=== PATIENT | female | born 1940 | race Caucasian/White ===

== ENCOUNTER 2017-03-11 09:45 | Inpatient (IN) | payer MEDICARE, BC ==
[2017-03-11] MEDS ORDERED: Sodium Chloride 0.9% 1,000 ML IV ONE (09:52)
--- NOTE | 2017-03-11 09:58 | EDM.PDOC ---
ED HISTORY OF PRESENT ILLNESS - General Stated Complaint: FROM CLINIC, AFIB Time Seen by Provider: 03/11/17 09:50 Source of Information: Reports: Patient, Provider History Limitations: Reports: No limitations - History of Present Illness INITIAL COMMENTS - FREE TEXT/NARRATIVE: This 76 yo female patient was sent to the ED from [facility] due to chest tightness and new onset of A fib with RVR. The patient reports she has been experiencing increased shortness of breath for the past 2-3 days along with some chest tightness. The clinic assessed the patient and noted a heart rate of 140 and the EKG demonstrates new onset Atrial Fibrillation with rapid ventricular response. The patient has a past history of osteoporosis and is currently on Calcium and Vitamin D. Symptom Onset Date: 03/07/17 Timing/Duration: Reports: Constant Severity: moderate Location, General: Reports: chest Quality: Reports: Dull (tightness) Improves with: Reports: Rest Worsens with: Reports: Movement Associated Symptoms (General): Reports: chest pain (tightness), shortness of breath - Related Data Allergies/ADRs: Allergies Allergy/AdvReac Type Severity Reaction Status Date / Time Penicillins Allergy Hives Verified 03/11/17 09:53 Home Meds: Home Meds Calcium Carbonate/Vitamin D3 [Caltrate 600 + D Soft Chew Tab] 1 each PO DAILY [History] Multivitamin [Multivitamins] 1 each PO DAILY 03/11/17 [History] Past Medical History - Past Health History Medical/Surgical History: Denies Medical/Surgical History Dermatologic History: Reports: Other (see below) (shingles) Other Dermatologic History: shingles Social & Family History - Family History Family Medical History: Noncontributory - Tobacco Use Smoking Status *Q: Never Smoker - Recreational Drug Use Recreational Drug Use: No - Living Situation & Occupation Living situation: Reports: with family ED ROS GENERAL - Review of Systems Review Of Systems: ROS reveals no pertinent complaints other than HPI. ED EXAM, GENERAL - Physical Exam Exam: See Below Exam Limited By: No limitations General Appearance: alert, WD/WN, moderate distress Eye Exam: bilateral eye: EOMI, normal inspection, PERRL Ears: normal external exam, normal canal, hearing grossly normal, normal TMs Nose: normal inspection, normal mucosa, no blood Throat/Mouth: Normal inspection, Normal lips, Normal teeth, Normal gums, Normal oropharynx, Normal voice, No airway compromise Head: atraumatic, normocephalic Neck: normal inspection, supple, non-tender, full range of motion Respiratory/Chest: no respiratory distress, lungs clear, normal breath sounds, no accessory muscle use, chest non-tender Cardiovascular: tachycardia, irregularly irregular GI/Abdominal: normal bowel sounds, soft, non tender, no organomegaly, no distention, no abnormal bruit, no mass (Female) Exam: Deferred Rectal (Female) Exam: Deferred Back Exam: normal inspection, full range of motion, NT Extremities: normal inspection, normal range of motion, non-tender, normal capillary refill, no pedal edema Neurological: alert, oriented, CN II-XII intact, normal cognition, normal gait, normal reflexes, no motor/sensory deficits Psychiatric: normal affect, normal mood Skin Exam: Warm, Dry, Intact, Normal color, No rash Lymphatic: no adenopathy Course - Vital Signs Last Recorded V/S: Last Vital Signs Temp 36.2 C 03/11/17 09:58 Pulse 106 H 03/11/17 10:20 Resp 18 03/11/17 10:20 BP 117/87 03/11/17 10:20 Pulse Ox 94 L 03/11/17 10:20 - Orders/Labs/Meds Orders: Active Orders 24 hr Category Date Time Status EKG Documentation Completion [RC] URGENT Care 03/11/17 09:51 Ordered Diltiazem 100 MG in NS Adv @ 5 MG/HR(100ml) Med 03/11/17 10:45 Ordered Diltiazem [Cardizem] 100 mg Sodium Chloride 0.9% [Normal Saline] 100 ml IV TITRATE Heparin Sodium/D5W [Heparin 25,000 Units in D5W 500 ML] Med 03/11/17 10:45 Ordered 25,000 units in 500 ml IV TITRATE Sodium Chloride 0.9% [Normal Saline] 1,000 ml Med 03/11/17 09:52 Ordered IV .BOLUS Medication Orders Sodium Chloride (Normal Saline) 1,000 mls @ 125 mls/hr IV .BOLUS ONE Stop: 03/11/17 17:51 Last Admin: 03/11/17 10:09 Dose: 125 mls/hr Diltiazem HCl 100 mg/ Sodium (Chloride) 100 mls @ 5 mls/hr IV TITRATE CARLOS; 5 MG /HR PRN Reason: Protocol Heparin Sodium/Dextrose (Heparin 25,000 Units In D5w 500 Ml) 25,000 units in 500 mls @ 26.807 mls/hr IV TITRATE CARLOS PRN Reason: 15 UNITS/KG/HR Labs: Laboratory Tests 03/11/17 03/11/17 03/11/17 Range/Units 10:05 10:05 10:05 WBC 7.1 (5.0-10.0) 10^3/uL RBC 4.27 (4.2-5.4) 10^6/uL Hgb 13.1 (12.0-16.0) g/dL Hct 40.9 (37.0-47.0) % MCV 95.8 (80-100) fL MCH 30.7 (27.0-34.0) pg MCHC 32.0 L (33.0-35.0) g/dL Plt Count 237 (150-450) 10^3/uL Neut % (Auto) 68.1 (42.2-75.2) % Lymph % (Auto) 17.6 L (20.5-50.1) % Coke % (Auto) 11.3 H (2-8) % Eos % (Auto) 2.4 (1.0-3.0) % Baso % (Auto) 0.6 (0.0-1.0) % PT 10.4 (9.0-12.0) SEC INR 1.0 (0.9-1.2) Sodium 141 (135-145) mmol/L Potassium 4.3 (3.6-5.0) mmol/L Chloride 106 (101-111) mmol/L Carbon Dioxide 29.0 (21.0-31.0) mmol/L Anion Gap 10.3 BUN 22 H (7-18) mg/dL Creatinine 1.0 (0.6-1.3) mg/dL Est Cr Clr Drug Dosing 48.28 mL/min Estimated GFR (MDRD) 54 BUN/Creatinine Ratio 22.00 Glucose 96 (74-105) mg/dL Calcium 9.4 (8.4-10.2) mg/dl Total Bilirubin 0.5 (0.2-1.0) mg/dL AST 44 H (10-42) IU/L ALT 75 H (10-60) IU/L Alkaline Phosphatase 62 (42-121) IU/L Troponin I < 0.02 (0.00-0.02) ng/ml Total Protein 6.8 (6.7-8.2) g/dl Albumin 3.9 (3.2-5.5) g/dl Globulin 2.9 Albumin/Globulin Ratio 1.34 Meds: Medications Generic Name Dose Route Start Last Admin Trade Name Freq PRN Reason Stop Dose Admin Sodium Chloride 1,000 mls @ 125 mls/hr 03/11/17 09:52 03/11/17 10:09 Normal Saline IV 03/11/17 17:51 125 mls/hr .BOLUS ONE Administration Diltiazem HCl 100 mg/ Sodium 100 mls @ 5 mls/hr 03/11/17 10:45 Chloride IV TITRATE CARLOS Protocol 5 MG/HR Heparin Sodium/Dextrose 25,000 units in 500 mls @ 26.807 mls/hr 03/11/17 10: 45 Heparin 25,000 Units In D5w 500 Ml IV TITRATE CARLOS 15 UNITS/KG/HR Discontinued Medications Generic Name Dose Route Start Last Admin Trade Name Freq PRN Reason Stop Dose Admin Aspirin 324 mg 03/11/17 10:09 03/11/17 10:15 Aspirin PO 03/11/17 10:10 324 mg ONETIME ONE Administration Diltiazem HCl 20 mg 03/11/17 10:09 03/11/17 10:15 Diltiazem IVPUSH 03/11/17 10:10 10 mg ONETIME ONE Administration Departure - Departure Time of Disposition: 10:52 Disposition: Admitted As Inpatient 66 Condition: fair Clinical Impression: Atrial fibrillation with RVR Care Plan Goals: Discussed the history, examination, EKG, lab results and current treatments with Dr. Acosta. Dr. Acosta accepted the patient for continued evaluation and management as an inpatient at [facility] in [place]. - My Orders Last 24 Hours: My Active Orders 03/11/17 09:51 EKG Documentation Completion [RC] URGENT 03/11/17 09:52 Sodium Chloride 0.9% [Normal Saline] 1,000 ml IV .BOLUS 03/11/17 10:45 Diltiazem 100 MG in NS Adv @ 5 MG/HR(100ml) Diltiazem [Cardizem] 100 mg Sodium Chloride 0.9% [Normal Saline] 100 ml IV TITRATE Heparin Sodium/D5W [Heparin 25,000 Units in D5W 500 ML] 25,000 units in 500 ml IV TITRATE - Assessment/Plan Last 24 Hours: My Active Orders 03/11/17 09:51 EKG Documentation Completion [RC] URGENT 03/11/17 09:52 Sodium Chloride 0.9% [Normal Saline] 1,000 ml IV .BOLUS 03/11/17 10:45 Diltiazem 100 MG in NS Adv @ 5 MG/HR(100ml) Diltiazem [Cardizem] 100 mg Sodium Chloride 0.9% [Normal Saline] 100 ml IV TITRATE Heparin Sodium/D5W [Heparin 25,000 Units in D5W 500 ML] 25,000 units in 500 ml IV TITRATE
[2017-03-11] MEDS ORDERED: Diltiazem 25 MG/5 ML SDV IVPUSH ONE (10:09)
[2017-03-11] MEDS ORDERED: Aspirin 81 MG Tab.Chew PO ONE (10:09)
[2017-03-11 10:33] LABS: CHLORIDE,CL 106 mmol/L (101-111); SODIUM,NA 141 mmol/L (135-145)
[2017-03-11] MEDS ORDERED: Heparin Sodium/D5W 25,000 UNITS/500 ML BAG IV SCH (10:45)
[2017-03-11] MEDS: Diltiazem 100 MG in Sodium Chloride 0.9% 100 ML IV SCH ×2 (10:59→19:09)
[2017-03-11] MEDS ORDERED: Ondansetron 4 MG Tab.DIS PO PRN (12:07)
[2017-03-11] MEDS ORDERED: Acetaminophen 325 MG Tab PO PRN (12:07)
[2017-03-11] MEDS ORDERED: Sodium Chloride 0.9% 10 ML Syringe FLUSH PRN (12:07)
[2017-03-11] MEDS ORDERED: Zolpidem 5 MG Tab PO PRN (12:07)
--- NOTE | 2017-03-11 12:19 | PCM.HP ---
H&P History of Present Illness - General Date of Service: 03/11/17 Admit Problem/Dx: Admission Diagnosis/Problem Admission Diagnosis/Problem Tachycardia Source of Information: Patient - History of Present Illness Initial Comments - Free Text/Narative: the patient is a 76-year-old lady who has been generally healthy, only chronic medical condition is osteoporosis. She denies any history of diabetes hypertension congestive heart failure no prior stroke She has been feeling shortness of breath for about a month with associated elevated mild chest tightness She had no syncopal episode, shortness of breath is worse with activity, better with rest. She came to the clinic for evaluation today. She was noted to have rapid atrial fibrillation at the rate of 140s. She was transferred to the emergency room, she received Cardizem 10 mg IV bolus She was started on weight-based heparin nomogram now she is feeling better - Related Data Allergies/Adverse Reactions: Allergies Allergy/AdvReac Type Severity Reaction Status Date / Time Penicillins Allergy Hives Verified 03/11/17 09:53 Home Medications: Home Meds Calcium Carbonate/Vitamin D3 [Caltrate 600 + D Soft Chew Tab] 1 each PO DAILY [History] Multivitamin [Multivitamins] 1 each PO DAILY 03/11/17 [History] Past Medical History Cardiovascular History: Reports: Afib Other Cardiovascular History: New onset Afib today Other OB/BYN History: hysterectomy Musculoskeletal History: Reports: Osteoporosis Endocrine/Metabolic History: Reports: Osteoporosis Dermatologic History: Reports: Other (see below) Other Dermatologic History: shingles - Infectious Disease History Infectious Disease History: Reports: Shingles - Past Surgical History GI Surgical History: Reports: Appendectomy Female Surgical History: Reports: Other (see below) Other Female Surgeries/Procedures: Bladder lifted Social & Family History - Family History Family Medical History: Noncontributory - Tobacco Use Smoking Status *Q: Never Smoker Second Hand Smoke Exposure: No - Caffeine Use Caffeine Use: Reports: Coffee - Recreational Drug Use Recreational Drug Use: No - Living Situation & Occupation Living situation: Reports: with family H&P Review of Systems - Review of Systems: Review Of Systems: See Below General: Denies: fever, chills Pulmonary: Reports: Shortness of Breath. Denies: Wheezing, Pleuritic Chest Pain , Hemoptysis Cardiovascular: Reports: chest pain (chest tightness) Gastrointestinal: Reports: Diarrhea. Denies: Abdominal pain Genitourinary: Denies: dysuria Psychiatric: Denies: confusion Neurological: Denies: Dizziness Exam - Exam Exam: See Below - Vital Signs Vital Signs: Last Vital Signs Temp 36.6 C 03/11/17 11:07 Pulse 92 03/11/17 11:07 Resp 20 03/11/17 11:07 BP 112/86 03/11/17 11:07 Pulse Ox 99 03/11/17 11:07 Weight: 89.811 kg - Exam Quality Assessment: No: supplemental oxygen General: alert, oriented Neck: supple, trachea midline Lungs: Clear to auscultation, Normal respiratory effort Cardiovascular: irregular rhythm, tachycardia Abdomen: normal bowel sounds, soft Extremities: normal inspection. No: edema Neuro Extensive - Mental Status: alert, oriented x3, normal mood/affect, normal cognition Neuro Extensive - Motor, Sensory, Reflexes: normal gait Psychiatric: alert, normal affect, normal mood - Patient Data Result Diagrams: 03/11/17 10:05 03/11/17 10:05 *Q Meaningful Use (ADM) - VTE *Q VTE Criteria *Q: - Stroke *Q Stroke Criteria *Q: - AMI *Q AMI Criteria *Q: Problem List Initiated/Reviewed/Updated: Yes Orders Last 24hrs: Active Orders 24 hr Category Date Time Status Patient Status [ADT] Routine ADT 03/11/17 12:07 Ordered Antiembolic Devices [RC] PER UNIT ROUTINE Care 03/11/17 12:10 Ordered Oxygen Therapy [RC] PRN Care 03/11/17 12:07 Ordered Peripheral IV Care [RC] . DIRECTED Care 03/11/17 12:10 Ordered Up With Assistance [RC] ASDIRECTED Care 03/11/17 12:07 Ordered VTE/DVT Education [RC] PER UNIT ROUTINE Care 03/11/17 12:07 Ordered Vital Signs [RC] Q4H Care 03/11/17 12:07 Ordered Regular Diet [DIET] Diet 03/11/17 Dinner Ordered BASIC METABOLIC PANEL,BMP [CHEM] AM Lab 03/12/17 05:15 Ordered CBC WITH AUTO DIFF [HEME] AM Lab 03/12/17 05:15 Ordered TROPONIN I [CHEM] Routine Lab 03/11/17 18:00 Ordered Acetaminophen [Tylenol] Med 03/11/17 12:07 Ordered 650 mg PO Q4H PRN Aspirin Med 03/12/17 08:00 Ordered 325 mg PO WITHBREAKFAST Ondansetron [Zofran ODT] Med 03/11/17 12:07 Ordered 4 mg PO Q6H PRN Sodium Chloride 0.9% [Saline Flush] Med 03/11/17 12:07 Ordered 10 ml FLUSH ASDIRECTED PRN Zolpidem [Ambien] Med 03/11/17 12:07 Ordered 5 mg PO BEDTIME PRN Antiembolic Hose [OM.PC] Per Unit Routine Oth 03/11/17 12:09 Ordered Peripheral IV Insertion Adult [OM.PC] Routine Oth 03/11/17 12:07 Ordered Saline Lock Insert [OM.PC] Routine Oth 03/11/17 12:07 Ordered Resuscitation Status Routine Resus Stat 03/11/17 12:07 Ordered Medication Orders Acetaminophen (Tylenol) 650 mg PO Q4H PRN PRN Reason: Pain (Mild 1-3)/fever Aspirin (Aspirin) 325 mg PO WITHBREAKFAST CARLOS Sodium Chloride (Normal Saline) 1,000 mls @ 125 mls/hr IV .BOLUS ONE Stop: 03/11/17 17:51 Last Admin: 03/11/17 10:09 Dose: 125 mls/hr Diltiazem HCl 100 mg/ Sodium (Chloride) 100 mls @ 5 mls/hr IV TITRATE CARLOS; 5 MG /HR PRN Reason: Protocol Last Admin: 03/11/17 10:59 Dose: 5 mls/hr Heparin Sodium/Dextrose (Heparin 25,000 Units In D5w 500 Ml) 25,000 units in 500 mls @ 26.807 mls/hr IV TITRATE CARLOS; 15 UNITS/KG/HR PRN Reason: Protocol Last Admin: 03/11/17 11:00 Dose: 15 units/kg/hr, 26.807 mls/hr Ondansetron HCl (Zofran Odt) 4 mg PO Q6H PRN PRN Reason: nausea, able to take PO Sodium Chloride (Saline Flush) 10 ml FLUSH ASDIRECTED PRN PRN Reason: Keep Vein Open Zolpidem Tartrate (Ambien) 5 mg PO BEDTIME PRN PRN Reason: Sleep Assessment/Plan Comment:: 1. chest tightness, shortness of breath likely relates to rapid atrial fibrillation The patient received IV Cardizem in the emergency room. Will start Cardizem drip, titrate to achieve heart rate is in the 100 Later was changed to oral medications 2. Anticoagulation for atrial fibrillation The patient has been started on weight-based heparin to prevent stroke Her CHADS2 score is low. she probably could be treated with a full dose aspirin only especially if she converts back to sinus rhythm overnight 3. We'll monitor on telemetry, obtain a troponin to evaluate for ischemic heart disease discussed with the emergency room provider.
[2017-03-11] MEDS ORDERED: Enoxaparin 80 MG/0.8 ML Syringe SUBCUT SCH (16:00)
--- NOTE | 2017-03-11 16:06 | EKG ---
03/11/2017 - ROSSY DAO - TIME: 9:57 a.m. EKG per my reading shows rapid atrial fibrillation at the rate of 130s to 140s. [facility] /[id number]
[2017-03-11] MEDS: Metoprolol Tartrate 25 MG Tab PO SCH (19:08)
[2017-03-11] MEDS: Enoxaparin 80 MG/0.8 ML Syringe SUBCUT SCH (21:31)
[2017-03-11] MEDS ORDERED: Sodium Chloride 0.9% 500 ML IV ONE (23:09)
[2017-03-12 06:45] LABS: CHLORIDE,CL 107 mmol/L (101-111); SODIUM,NA 140 mmol/L (135-145)
[2017-03-12] MEDS ORDERED: Aspirin 325 MG Tab PO SCH (08:00)
[2017-03-12] MEDS: Metoprolol Tartrate 25 MG Tab PO SCH (08:43)
[2017-03-12] MEDS: Enoxaparin 80 MG/0.8 ML Syringe SUBCUT SCH (11:13)
[2017-03-12 13:39] VITALS: BP 145/79
--- NOTE | 2017-03-13 04:15 | DISCH ---
ADMITTING DIAGNOSIS: Atrial fibrillation with rapid ventricular response. DISCHARGE DIAGNOSES: 1. Atrial fibrillation with rapid ventricular response, complicated with hypotensive episodes. 2. The patient needing higher level of care, requiring 2D echocardiogram and possible Cardiology consultation, so being discharged to higher level of care. HISTORY OF PRESENTING ILLNESS: Mrs. Brodie Parker is a 76-year-old female with medical history significant for osteoporosis, but denied any history of hypertension or diabetes or congestive heart failure or any coronary artery disease, was admitted to the hospital after referred from the clinic with complaints of chest tightness and pressure and was noted to be in atrial fibrillation with rapid ventricular response. The patient was started on IV Cardizem drip and it was complicated with hypotensive episodes with blood pressure dropping down to 80 systolic and 90 systolic, requiring fluid boluses. She was started on oral metoprolol at 25 mg twice a day and gradually was able to wean off the Cardizem drip. Her heart rate remained in the range of 90-110. We looked for a 2D echocardiogram, but unfortunately we do not have any echocardiogram services available until Thursday, so she is being transferred to higher level of care with 2D echocardiogram facility and possible Cardiology consultation for this new onset atrial fibrillation to rule out any ischemic events leading to this atrial fibrillation. So far, her cardiac enzymes remained negative. Her TSH remained normal. She is accepted to [facility] in transfer. She is discharged to [facility] in stable condition. She would need ACLS transportation secondary to this ongoing atrial fibrillation and hypotensive episodes. PHYSICAL EXAMINATION: Vital Signs: On the day of discharge vitals; temperature of 96.5, pulse of 110, blood pressure of 95/67, respiratory rate of 15, saturating at 96% on 1 L of oxygen. General Appearance: The patient is well oriented to time, place, and person. Follows commands spontaneously. Cardiovascular: S1 and S2 heard with normal intensity. Irregular heart rate. Respiratory: Clear to auscultation bilaterally. No wheeze. No crepitations. Abdomen: Soft. Bowel sounds positive. Nontender. No rigidity. Extremities: No edema in bilateral lower extremities. Psychology: Normal mood. SKIN: No acute rash noted at this time. DISCHARGE MEDICATIONS: Include: 1. Aspirin 325 mg daily. 2. Calcium carbonate with vitamin D 1 tablet daily. 3. Lovenox 80 mg subcu q.12 hours hourly. 4. Metoprolol 25 mg twice a day. 5. Multivitamin 1 tablet once a day. CONDITION ON ADMISSION: Poor. CONDITION ON DISCHARGE: Stable. DISPOSITION: Discharged to [facility] for further cares. ACTIVITY: As tolerated. DIET: Cardiac healthy diet. FOLLOWUP: Follow with primary care physician in 1 to 2 weeks post discharge from [facility]. I spent over 35 minutes of time in evaluating and treating this patient and making discharge plans. [facility] /[id number]
== END 2017-03-12 13:28 | DRG 310 ==
LOC: DL.ED 09:45 → UNDOADMIN 10:50 → DL.MS 10:50
PROVIDERS: ADMIT Internal Medicine; ATTEND Internal Medicine
DX: I48.91 Unspecified atrial fibrillation (principal); I95.9 Hypotension, unspecified; M19.90 Unspecified osteoarthritis, unspecified site
CPT/HCPCS: 36415; 80053; 84484; 85025; 85610; 93005; 93010; 96361; 96365; 96368; 96375; 99285; A9270; J1644; J7030; J7050; 80048; 83735; 83880; 84100; 84443; 85730; 99284; J1650; J3490